=== PATIENT | female | born 1995 | race Caucasian/White ===

== ENCOUNTER → 2017-08-28 | Outpatient (CLI) | payer BC, OTHER ==
[~2017-08-28] MED LIST: ACHD5005 PO; AZIT200S47 PO; BCP PO; CETI10TA20 PO; DEXAINTSOL PO; HYDR15SO8 PO; OMEP20CA12 PO; ONDA8TAB6 PO; SULF1TAB35 PO; TETRACAINESUCKERS MT
--- NOTE | 2017-08-28 10:16 | Diagnostic Imaging Report ---
PROCEDURE: US Gallbladder. TECHNIQUE: Multiple real-time grayscale images were obtained over the right upper quadrant in various projections. INDICATION: Epigastric pain with nausea and vomiting. FINDINGS: The liver is at the upper limits of normal in size at 18 cm. No discrete liver mass is identified. The gallbladder is without stones or sludge. No wall thickening or biliary ductal dilatation is seen. The pancreas is unremarkable. The right kidney is unremarkable. There is no ascites. IMPRESSION: Unremarkable gallbladder ultrasound. Dictated by: Dictated on workstation # [id number]
== END ==
LOC: RAD 09:27
PROVIDERS: ATTEND Nurse Practitioner Family
DX: R10.11 Right upper quadrant pain (principal); R11.2 Nausea with vomiting, unspecified
CPT/HCPCS: 76705

== ENCOUNTER → 2017-08-29 | Outpatient (CLI) | payer OTHER ==
[~2017-08-29] MED LIST changes: +CATHETER FLUSH 10 ML SYR IV PRN
--- NOTE | 2017-08-29 14:55 | Diagnostic Imaging Report ---
HEPATOBILIARY SCAN DATE: August 29, 2017. INDICATION: 22-year-old female, nausea. COMPARISON: Right upper quadrant ultrasound August 28, 2017. PROCEDURE: 5.46 mCi of Tc-99m choletech was administered intravenously and serial anterior planar images over the liver and upper abdomen were obtained. FINDINGS: There is homogenous activity throughout the liver with good clearance of background activity. This indicates good hepatocellular function. Biliary tree activity is seen at 10 minutes. The gallbladder is seen at 10 minutes. There is no enterogastric reflux. The biliary tree is patent. There is no evidence of acute cholecystitis. Ensure was administered for calculation of gallbladder ejection fraction. Gallbladder ejection fraction was calculated to be 23.5%. IMPRESSION: 1. No evidence of acute cholecystitis. 2. Gallbladder ejection fraction of 23.5% which is below lower limits of normal and may be seen in the setting of biliary dyskinesia and/or chronic cholecystitis. Dictated by: Dictated on workstation # [id number]
== END ==
LOC: CARD 11:50
PROVIDERS: ATTEND Surgery
DX: R11.0 Nausea (principal)
CPT/HCPCS: 78227

== ENCOUNTER 2017-09-01 08:00 | Day surgery (SDC) | payer OTHER ==
[~2017-09-01] VITALS: Ht 167.6 cm; Wt 51.7 kg
[~2017-09-01 08:00] MED LIST changes: -ACHD5005 PO; -CATHETER FLUSH 10 ML SYR IV PRN; -CETI10TA20 PO; -OMEP20CA12 PO; -ONDA8TAB6 PO; -SULF1TAB35 PO
[2017-09-01] MEDS ORDERED: LACTATED RINGERS 1,000 ML IV ONE (08:07)
[2017-09-01] MEDS ORDERED: LACTATED RINGERS 1,000 ML IV STA (08:10)
[2017-09-01] MEDS ORDERED: HURRICAINE EXT TUBE (BENZOCAINE) XX PRN (08:15)
[2017-09-01 08:23] VITALS: BP 102/73
[2017-09-01] MEDS ORDERED: OMEP20CA12 PO ×2 (08:27)
[2017-09-01] MEDS ORDERED: CETI10TA20 PO ×2 (08:27)
[2017-09-01] MEDS ORDERED: PROPOFOL INJECTION 50 ML IV ONE (09:28)
--- NOTE | 2017-09-01 09:43 | Progress Note-Pre Operative ---
Pre-Operative Progress Note H&P Reviewed The H&P was reviewed, patient examined and no changes noted. Time Seen by Provider: 09:40 Date H&P Reviewed: Sep 01, 2017 Time H&P Reviewed: 09:42 Pre-Operative Diagnosis: Gastritis, Change in bowel habits, abdominal pain RON BETHEA DO Sep 01, 2017 09:42
[2017-09-01] MEDS ORDERED: proPOfol 200 MG/20 ML (DIPRIVAN) VIAL IV ONE (09:52)
[2017-09-01] MEDS ORDERED: HURRICAINE EXT TUBE (BENZOCAINE) ONE (10:19)
--- NOTE | 2017-09-01 10:23 | Progress Note-Post Operative ---
Post-Operative Progess Note Surgeon (s)/Clinical Staff Anesthesiologist (s) Surgeon RON BETHEA DO Clinical Staff Anesthesiologist: none Pre-Operative Diagnosis Gastritis, Change in bowel habits, abdominal pain Post-Operative Diagnosis Gastritis Esophageal Polyp Internal Hemorrhoids Procedure & Operative Findings Date of Procedure 09/01/17 Procedure Performed/Findings EGD with bx Colonoscopy Anesthesia Type IV sedation by TOW CAR DRIVER Estimated Blood Loss Estimated blood loss (mL): scant Specimens/Packing Specimens Removed Antral bx Esophageal polyp RON BETHEA DO Sep 01, 2017 10:23
[2017-09-01 10:30] VITALS: BP 129/64
--- NOTE | 2017-09-01 10:32 | Endoscopy Discharge Instruct ---
Endo Procedure/Findings Findings 1.: Gastritis 2.: Internal Hemorrhoids Discharge Instructions - Activity: You might feel a little sleepy until tomorrow. This is due to the medicine you received to relax you. Until tomorrow, you should: NOT drive a car, operate machinery or power tools. NOT drink any alcoholic beverages. NOT make any important decisions or sign importortant papers. Do not return to work until tomorrow, unless otherwise instructed. Resume previous activities tomorrow. Diet: Start by taking liquids. If you tolerate liquids, advance to solid food. Make appointment for one week. Notify Physician - If you experience excessive bleeding, unusual abdominal pain, fever, or chest pain, contact your doctor immediately. Follow-Up: - I have received and understand the above instructions and will call my doctor if I have any further questions. Patient Signature Date Nurse Signature Other (Relationship) RON BETEHA DO Sep 01, 2017 10:32
[2017-09-01 10:50] VITALS: BP 109/89
[2017-09-01 11:11] VITALS: BP 109/89
--- NOTE | 2017-09-01 12:13 | Anesthesia-General Post-Op ---
MAC Patient Condition Mental Status/LOC: Same as Preop Cardiovascular: Satisfactory Nausea/Vomiting: Absent Respiratory: Satisfactory Pain: Controlled Complications: Absent Post Op Complications Complications None Follow Up Care/Instructions Patient Instructions None needed. Anesthesiology Discharge Order Discharge Order Patient is doing well, no complaints, stable vital signs, no apparent adverse anesthesia problems. No complications reported per nursing. LESLY WHEELER CRNA Sep 01, 2017 12:13
--- OUTSIDE RECORDS SUMMARY | 2017-09-01 13:44 | XMS REPORT | Continuity of Care Document ---
Author Author [facility] Organization [facility] Address Unknown Phone Unavailable Allergies Active Description Code Type Severity Reaction Onset Reported/Identified Relationship to Patient Clinical Status Yes cefadroxil [id number] Drug Allergy Severe HIVES AND DIFFI 02/12/2006 Yes amoxicillin trihydrate [id number] Drug Allergy Unknown HIVES 08/02/2011 Yes potassium clavulanate [id number] Drug Allergy Unknown HIVES 08/02/2011 Medications There is no data. Problems Date Dx Coded Attending Type Code Diagnosis Diagnosed By 08/02/2011 Ot 789.01 ABDOMINAL PAIN, RIGHT UPPER QUADRANT 04/01/2013 MADELYN OLSEN, JUWAN Lundberg Ot 380.10 INFEC OTITIS EXTERNA NOS 03/10/2014 Ot 785.6 03/10/2014 Ot 785.6 03/28/2014 JUWAN JOSHI MD Ot 789.03 06/30/2014 Ot 785.6 06/30/2014 JUWAN JOSHI MD Ot 789.03 07/28/2014 DAMION SIMENTAL PRODUCT SALES ENGINEER Ot 599.0 11/22/2014 KASH PERKINS E PRODUCT SALES ENGINEER Ot 780.60 11/22/2014 KASH PERKINS E PRODUCT SALES ENGINEER Ot 787.03 11/22/2014 GREGORIO KASH E PRODUCT SALES ENGINEER Ot 789.03 02/01/2016 Ot 785.6 ENLARGEMENT LYMPH NODES 02/01/2016 MADELYN OLSEN, JUWAN Lundberg Ot 789.03 ABDOMINAL PAIN, RIGHT LOWER QUADRANT 02/01/2016 DAMION SIMENTAL PRODUCT SALES ENGINEER Ot 599.0 URIN TRACT INFECTION NOS 02/01/2016 PERKINS, KASH E PRODUCT SALES ENGINEER Ot 780.60 FEVER, UNSPECIFIED 02/01/2016 PERKINS KASH E PRODUCT SALES ENGINEER Ot 787.03 VOMITING ALONE 02/01/2016 GREGORIO KASH E PRODUCT SALES ENGINEER Ot 789.03 ABDOMINAL PAIN, RIGHT LOWER QUADRANT 02/09/2016 DOMINGA JOYA MD Ot J35.01 CHRONIC TONSILLITIS 02/09/2016 DOMINGA JOYA MD Ot Z01.818 ENCOUNTER FOR OTHER PREPROCEDURAL EXAMIN 02/09/2016 DOMINGA JOYA MD Ot J35.01 CHRONIC TONSILLITIS 02/09/2016 DOMINGA JOYA MD Ot Z01.818 ENCOUNTER FOR OTHER PREPROCEDURAL EXAMIN 02/15/2016 DOMINGA JOYA MD Ot J35.01 CHRONIC TONSILLITIS 02/15/2016 DOMINGA JOYA MD Ot Z01.818 ENCOUNTER FOR OTHER PREPROCEDURAL EXAMIN 02/16/2016 Ot 785.6 ENLARGEMENT LYMPH NODES 02/16/2016 MADELYN OLSEN, JUWAN J Ot 789.03 ABDOMINAL PAIN, RIGHT LOWER QUADRANT 02/16/2016 NYASIAGrantDAMION PRODUCT SALES ENGINEER Ot 599.0 URIN TRACT INFECTION NOS 02/16/2016 PERKINSKASH E PRODUCT SALES ENGINEER Ot 780.60 FEVER, UNSPECIFIED 02/16/2016 PERKINS KASH E PRODUCT SALES ENGINEER Ot 787.03 VOMITING ALONE 02/16/2016 PERKINS KASH E PRODUCT SALES ENGINEER Ot 789.03 ABDOMINAL PAIN, RIGHT LOWER QUADRANT 02/16/2016 DOMINGA JOYA MD Ot J35.01 CHRONIC TONSILLITIS 02/19/2016 DOMINGA JOYA MD Ot J35.01 CHRONIC TONSILLITIS 02/19/2016 DOMINGA JOYA MD Ot J35.01 CHRONIC TONSILLITIS 02/22/2016 DOMINGA JOYA MD Ot J35.01 CHRONIC TONSILLITIS Procedures There is no data. Results Test Result Range Urine beta human chorionic gonadotropin (hCG) measurement - 02/16/16 09:25 Urine beta human chorionic gonadotropin (hCG) measurement NEGATIVE NEGATIVE Complete blood count (CBC) with automated white blood cell (WBC) differential - 02/16/16 09:41 Blood leukocytes automated count (number/volume) 5.3 10*3/uL 4.3-11.0 Blood erythrocytes automated count (number/volume) 4.51 10*6/uL 4.35-5.85 Venous blood hemoglobin measurement (mass/volume) 14.1 g/dL 11.5-16.0 Blood hematocrit (volume fraction) 41 % 35-52 Automated erythrocyte mean corpuscular volume 91 [foz_us] 80-99 Automated erythrocyte mean corpuscular hemoglobin (mass per erythrocyte) 31 pg 25-34 Automated erythrocyte mean corpuscular hemoglobin concentration measurement ( mass/volume) 35 g/dL 32-36 Automated erythrocyte distribution width ratio 11.9 % 10.0-14.5 Automated blood platelet count (count/volume) 266 10*3/uL 130-400 Automated blood platelet mean volume measurement 10.0 [foz_us] 7.4-10.4 Automated blood neutrophils/100 leukocytes 54 % 42-75 Automated blood lymphocytes/100 leukocytes 36 % 12-44 Blood monocytes/100 leukocytes 7 % 0-12 Automated blood eosinophils/100 leukocytes 2 % 0-10 Automated blood basophils/100 leukocytes 1 % 0-10 Blood neutrophils automated count (number/volume) 2.9 10*3 1.8-7.8 Blood lymphocytes automated count (number/volume) 1.9 10*3 1.0-4.0 Blood monocytes automated count (number/volume) 0.4 10*3 0.0-1.0 Automated eosinophil count 0.1 10*3/uL 0.0-0.3 Automated blood basophil count (count/volume) 0.0 10*3/uL 0.0-0.1 Methicillin resistant Staphylococcus aureus (MRSA) screening culture - 09:50 Methicillin resistant Staphylococcus aureus (MRSA) screening culture NEG NRG HSV 1 and 2-Specific Ab, IgG - 08/29/16 12:00 HSV 1 IgG, Type Spec 27.30 index 0.00-0.90 HSV 2 IgG, Type Spec <0.91 index 0.00-0.90 Urine beta human chorionic gonadotropin (hCG) measurement - 09/01/17 08:15 Urine beta human chorionic gonadotropin (hCG) measurement NEGATIVE NEGATIVE Encounters ACCT No. Visit Date/Time Discharge Status Pt. Type Provider Facility Loc./Unit Complaint [id number] 08/28/2017 09:27:00 08/28/2017 23:59:59 CLS Outpatient RAMON WILLAMS APRN [facility] RAD RUQ PAIN [id number] 02/16/2016 09:19:00 02/16/2016 15:00:00 DIS Outpatient DOMINGA JOYA MD [facility] SDC CHRONIC TONSILLITIS [id number] 02/09/2016 05:35:00 02/09/2016 11:32:00 DIS Outpatient TOAN OLSEN, DOMINGA Lentz [facility] PREOP CHRONIC TONSILLITIS [id number] 11/08/2014 13:47:00 11/08/2014 23:59:59 CLS Outpatient PERKINSKASH PRODUCT SALES ENGINEER [facility] RAD ABDOMINAL PAIN [id number] 06/30/2014 10:40:00 06/30/2014 23:59:59 CLS Outpatient KAMILLE DAMION Avila PRODUCT SALES ENGINEER [facility] LAB UTI [id number] 03/10/2014 15:12:00 03/10/2014 23:59:59 CLS Outpatient MADELYN OLSEN, JUWAN Lundberg [facility] RAD RLQ ABD PAIN [id number] 01/03/2013 17:32:00 04/01/2013 00:01:00 DIS Outpatient JUWAN JOSHI MD [facility] 4TH RCR OTITIS EXTERNA [id number] 09/01/2017 09:20:00 PEN Preadmit RON BETHEA DO [facility] ENDO NAUSEA/VOMITING/CHANGE IN BM'S [id number] 08/29/2017 11:50:00 ACT Outpatient RON BETHEA DO [facility] CARD NAUSEA [id number] 08/02/2011 10:52:00 Document Registration [id number] 01/08/2011 15:45:00 Document Registration [id number] 11/08/2014 13:48:05 ACT Document Registration [id number] 09/01/2016 13:05:00 Document Registration [id number] 08/28/2017 09:07:51 08/28/2017 23:59:59 CLS Outpatient
--- NOTE | 2017-09-01 15:11 | OPERATIVE REPORT ---
DATE OF SERVICE: 09/01/2017 PREOPERATIVE DIAGNOSES: 1. Chronic gastritis. 2. Change in bowel habits. POSTOPERATIVE DIAGNOSES: 1. Gastritis. 2. Esophageal biopsy. 3. Internal hemorrhoids. PROCEDURES PERFORMED: 1. Esophagogastroduodenoscopy with biopsy. 2. Colonoscopy. SURGEON: Prateek Singletary DO. LEAD PRESSER: None. ANESTHESIA: IV sedation by the RESEARCH AND EVALUATION MANAGER. SPECIMEN: One biopsy from the antrum and one biopsy of an esophageal polyp. BLOOD LOSS: Scant. FLUIDS: Per Anesthesia. POSTOPERATIVE CONDITION: Stable. INDICATION FOR PROCEDURE: The patient is a 22-year-old female who states she has had chronic gastritis in the past 5 years, has been taking omeprazole the entire time. Also she had some abdominal pain, some change in bowel habits and needed a workup. FINDINGS: The patient had some gastritis, biopsy was taken. She also had what looked like esophageal polyp, did a biopsy of this. Colonoscopy showed basically some internal hemorrhoids. No other obvious pathology. PROCEDURE NOTE: After informed consent was obtained, the patient was brought to the endoscopy suite, placed in the bed in left lateral decubitus position. She was administered IV sedation by the RESEARCH AND EVALUATION MANAGER who then monitored her vitals the entire time, heart rate, blood pressure and pulse ox and the scope was inserted first started with the EGD scope down the esophagus into the stomach, little bit of gastritis in the antrum, took a picture of this, pushed in and the duodenum looked normal, backed up and did a biopsy of the antrum and then backed up a little more and retroflexed, saw possibly a very tiny hiatal hernia. Pulled the scope back up into the esophagus to look at the GE junction, looked like there was a polyp at the GE junction, took a biopsy of this and then continued up the esophagus, took another picture and then pulled out of the mouth. I then switched cameras and gloves and went to the other side and started the colonoscopy. Pushed the scope in all the way to about 140 cm, able to get to the cecum, took a picture of appendiceal orifice and then able to get into the terminal ileum, took a picture and then slowly withdrew the scope insufflating to look circumferentially at the danielle looking at the cecum, up the ascending colon to the hepatic flexure, then down the transverse colon, the splenic flexure, into the descending colon and finally down into the sigmoid and into the rectum, retroflexed in the rectal vault, saw some minimal internal hemorrhoids, took a picture of this and then removed the scope. The patient tolerated the procedure and she was recovered in the endoscopy suite. Job ID: [id number] DocumentID: [id number] Dictated Date: 09/01/2017 10:37:43 Scouring Train Operator Date: 09/01/2017 15:10:18 Dictated By: DO CHINYERE TIJERINA
[2017-09-11] MEDS ORDERED: ACHD5005 PO (09:33)
== END 2017-09-01 11:00 | disposition home or self-care (01) ==
LOC: ENDO 08:00
PROVIDERS: ATTEND Surgery
DX: K29.50 Unspecified chronic gastritis without bleeding (principal); K31.7 Polyp of stomach and duodenum; K64.8 Other hemorrhoids; R19.4 Change in bowel habit
CPT/HCPCS: 84703

== ENCOUNTER 2017-09-09 05:39 | Outpatient (CLI) | payer OTHER ==
[~2017-09-09] VITALS: Ht 167.6 cm; Wt 51.7 kg
[~2017-09-09 05:39] MED LIST changes: +CETI10TA20 PO; +OMEP20CA12 PO
[2017-09-09] MEDS ORDERED: ONDA8TAB6 PO (14:06)
[2017-09-11] MEDS ORDERED: ACHD5005 PO (09:33)
== END 2017-09-09 14:54 | disposition home or self-care (01) ==
LOC: PREOP 05:39
PROVIDERS: ATTEND Surgery
DX: Z01.818 Encounter for other preprocedural examination (principal)

== ENCOUNTER 2017-09-11 06:05 | Day surgery (SDC) | payer OTHER ==
[~2017-09-11] VITALS: Ht 167.6 cm; Wt 51.7 kg
[~2017-09-11 06:05] MED LIST changes: +ONDA8TAB6 PO
[2017-09-11] MEDS ORDERED: CLINDAMYCIN 600 MG/50 ML IVPB 50 ML IV ONE ×2 (06:15→06:44)
[2017-09-11 06:20] VITALS: BP 99/67
[2017-09-11] MEDS: LACTATED RINGERS 1,000 ML IV PRN ×2 (06:30→08:49)
[2017-09-11] MEDS ORDERED: proPOfol 200 MG/20 ML (DIPRIVAN) VIAL IV ONE (06:43)
[2017-09-11] MEDS ORDERED: ONDANSETRON 4 MG/2 ML (SDV) Z0FRAN ONE (06:43)
[2017-09-11] MEDS ORDERED: LIDOCAINE PF 2% 5 ML (XYLOCAINE) VIAL ONE (06:43)
[2017-09-11] MEDS ORDERED: MIDAZOLAM 10 MG/2 ML (VERSED) VIAL ONE (06:43)
[2017-09-11] MEDS ORDERED: SEVOFLURANE (ULTANE) 15 ML INHAL SOLN ONE ×4 (06:43→09:32)
[2017-09-11] MEDS ORDERED: DEXAMETHASONE 10 MG/ML (DECADRON) 1 ML VIAL ONE (06:43)
[2017-09-11] MEDS ORDERED: fentaNYL INJECTION 100 MCG/2 ML AMP ONE (06:43)
[2017-09-11 07:01] LABS: BASOPHILS % (AUTO) 1 % (0-10); EOSINOPHILS # (AUTO) 0.1 10^3/uL (0.0-0.3); EOSINOPHILS % (AUTO) 1 % (0-10); HEMATOCRIT 34 % (35-52); HEMOGLOBIN 11.8 G/DL (11.5-16.0); LYMPHOCYTES % (AUTO) 32 % (12-44); MEAN CORPUSCULAR HEMOGLOBIN 31 PG (25-34); MEAN CORPUSCULAR HGB CONC 35 G/DL (32-36); MEAN CORPUSCULAR VOLUME 88 FL (80-99); MEAN PLATELET VOLUME 9.5 FL (7.4-10.4); MONOCYTES # (AUTO) 0.5 X 10^3 (0.0-1.0); MONOCYTES % (AUTO) 7 % (0-12); NEUTROPHILS # (AUTO) 3.7 X 10^3 (1.8-7.8); NEUTROPHILS % (AUTO) 59 % (42-75); PLATELET COUNT 237 10^3/uL (130-400); WHITE BLOOD COUNT 6.3 10^3/uL (4.3-11.0)
[2017-09-11] MEDS ORDERED: ROCURONIUM 10 MG/ML 5 ML SYRINGE IV ONE (07:18)
[2017-09-11] MEDS ORDERED: GLYCOPYRROLATE 0.2 MG/ML (ROBINUL) 2 ML VIAL ONE (07:33)
[2017-09-11] MEDS ORDERED: NEOSTIGMINE 1 MG/ML 5 ML SYRINGE ONE (07:33)
[2017-09-11] MEDS ORDERED: LIDOCAINE/EPI 1%-1:200,000 (XYLOCAINE) 10 ML VIAL ONE (07:37)
--- NOTE | 2017-09-11 08:18 | Progress Note-Pre Operative ---
Pre-Operative Progress Note H&P Reviewed The H&P was reviewed, patient examined and no changes noted. Time Seen by Provider: 08:13 Date H&P Reviewed: Sep 11, 2017 Time H&P Reviewed: 08:16 Pre-Operative Diagnosis: Biliary Dyskinesia RON BETHEA DO Sep 11, 2017 08:18
--- NOTE | 2017-09-11 09:32 | Progress Note-Post Operative ---
Post-Operative Progess Note Surgeon (s)/Renewals Representative (s) Surgeon RON BETHEA DO Renewals Representative: Gregory Pre-Operative Diagnosis Biliary Dyskinesia Post-Operative Diagnosis Biliary Dyskinesia Abnormal Appendix Right indirect inguinal hernia Procedure & Operative Findings Date of Procedure 09/11/17 Procedure Performed/Findings Lap Kat with IOC Lap Appy Anesthesia Type GET Estimated Blood Loss Estimated blood loss (mL): scant Specimens/Packing Specimens Removed GB RON Adams DO Sep 11, 2017 09:32
[2017-09-11] MEDS ORDERED: ACHD5005 PO (09:33)
--- NOTE | 2017-09-11 09:35 | Discharge Inst-Surgical ---
Discharge Inst-Surgical Depart Medication/Instructions New, Converted or Re-Newed RX: RX Given to Pt/Family Patient Instructions Follow up Appt: Make appointment for 1 week. Instructions: No lifting greater than 10 pounds. No strenuous activity. May shower in 24 hours, no tub bath or soaking. Use incentive spirometer at home as directed. No Smoking Skin/Wound Care: May remove bandages in am. You need to leave the Dermabond on over incision it will fall off on its own. Symptoms to Report: Appetite Changes, Extremity Discoloration, Numbness/Tingling, Swelling Increased , Bleeding Excessive, Eyesight Changes, Pain Increased, Urine Color Change, Constipation(Persistent), Fever over 101 degree F, Pain/Pressure in chest, Urinating Difficulty, Cough Up/Vomit Blood, Heart Beat Irreg/Pounding, Pain/ Pressure in jaw, Vaginal Bleeding Increase, Cramps in feet or legs, Lightheadedness, Pain/Pressure in shoulder, Diarrhea(Persistent), Memory Changes Suddenly, Questions/Concerns, Weight gain consecutive days, Dizziness/ Fainting, Nausea/Vomiting, Shortness of Breath, Weight gain over 2 pounds If questions or concerns contact your physician Or seek help at emergency department. Activity Activity as Tolerated: Yes Activity Instructions: Avoid Stress to Incision Driving Instructions: No Driving/Refer to Dr. Dailey Discharge Diet: No Restrictions Diet After 24 Hours: Clear Liquid if Nauseous If Any Problems/Questions/Issu: Contact Your Physician, Go to Emergency Room Skin/Wound Care Infection Signs and Symptoms: Increased Redness, Foul Odor of Wound, Increased Drainage, Skin Itchy or Has a Rash, Increased Swelling, Temperature Above 101 F Wound Care Comment: Use heating pad for neck or shoulder pain tonight Bathing Instructions: Shower Stitches/Appling/Dermabond Dis: Dermabond Ice Pack: Ice On and Off Site (as needed for pain) RON BETHEA DO Sep 11, 2017 09:35
[2017-09-11] MEDS ORDERED: ONDANSETRON 4 MG/2 ML (SDV) Z0FRAN IVP PRN (10:00)
[2017-09-11] MEDS ORDERED: MEPERIDINE (DEMEROL) INJ 50 MG/ML IVP PRN (10:00)
[2017-09-11] MEDS ORDERED: KETOROLAC 30 MG/ML VIAL IVP ONE (10:00)
[2017-09-11] MEDS ORDERED: PROMETHAZINE INJ 25 MG/ML (PHENERGAN) AMP IVP PRN (10:00)
[2017-09-11] MEDS ORDERED: KETOROLAC 30 MG/ML VIAL ONE (10:04)
[2017-09-11] MEDS ORDERED: morphine INJ 10 MG/ML 1ML (SYR OR VIAL) ONE (10:13)
[2017-09-11] MEDS: morphine INJ 10 MG/ML 1ML (SYR OR VIAL) IVP PRN ×2 (10:15→10:20)
[2017-09-11 10:45] VITALS: BP 107/74
[2017-09-11 10:46] VITALS: BP 107/74
[2017-09-11] MEDS ORDERED: HYDROcodone/APAP 5 MG/325 MG (LORTAB) TAB PO ONE (11:00)
[2017-09-11] MEDS ORDERED: HYDROcodone/APAP 5 MG/325 MG (LORTAB) TAB ONE (11:04)
[2017-09-11 11:15] VITALS: BP 96/63
--- NOTE | 2017-09-11 11:19 | Diagnostic Imaging Report ---
INDICATION: Abdominal pain. FINDINGS: Operative cholangiogram performed in routine fashion, intraoperative fluoroscopy was used. Contrast injection was made via the cystic duct stump. The biliary tree is nondilated. There is no filling defect in the biliary tree. Contrast passes to the duodenum without obstruction. Anatomic variant of one of the right ducts passing to the left ductal system was noted. 6 seconds of fluoroscopy time was used. IMPRESSION: Intraoperative fluoroscopy used for operative cholangiogram. There is no common duct stone or biliary obstruction. 6 seconds of fluoroscopy time was used in surgery. Dictated by: Dictated on workstation # [id number]
[2017-09-11 11:45] VITALS: BP 98/62
--- NOTE | 2017-09-11 13:25 | OPERATIVE REPORT ---
DATE OF SERVICE: 09/11/2017 PREOPERATIVE DIAGNOSIS: Biliary dyskinesia. POSTOPERATIVE DIAGNOSES: 1. Biliary dyskinesia. 2. Abnormal appendix. 3. Indirect right inguinal hernia. PROCEDURES: 1. Laparoscopic cholecystectomy, intraoperative cholangiogram. 2. Laparoscopic appendectomy. SURGEON: Prateek Singletary DO. OCCUPANCY SPECIALIST: Thomas Jenkins D.O. ANESTHESIA: General endotracheal tube. SPECIMEN: 1. Gallbladder and contents. 2. Appendix. BLOOD LOSS: Scant. FLUIDS: Per anesthesia. POSTOPERATIVE CONDITION: Stable. INDICATION FOR PROCEDURE: The patient is a 22-year-old female who has biliary dyskinesia and abdominal pain, needed her gallbladder removed. FINDINGS: The patient had dilated gallbladder, possibly some little bit of edema around it and then of note, she had an abnormal appendix, it was larger than at least a cm in size and appeared to have some erythema at the tip of the appendix. She also had an indirect right inguinal hernia. PROCEDURE NOTE: After informed consent was obtained, the patient was brought to the operating room, placed on the operating table in supine position. She was sterilely prepped and draped in normal fashion. Local lidocaine was used to infiltrate the skin below the umbilicus. Made incision with #11 blade, carried down through skin into subcutaneous tissue, then deepened down to subcutaneous tissue with Bovie electrocautery down to the fascia. Fascia was incised with electrocautery and bluntly entered the abdomen, swept a finger around, placed 11 mm trocar port under direct visualization. Created pneumoperitoneum and then placed 3 more ports in normal fashion using local lidocaine, 11 blade for stab incision and the VersaStep system all done under direct visualization, one subxiphoid and 2 in the right lower quadrant trying to hide the incision in the bikini line. Upon entering found the gallbladder was dilated, able to grasp at the fundus and taken in superior direction and grasp down to Alex's pouch and pulled in the inferolateral direction, started dissecting out cystic duct and cystic artery. I was able to get around the cystic duct, placed 1 clip distally and then get around the cystic artery and placed 1 clip distally and 2 proximally on the cystic artery. Cut the cystic duct intermediate through Metzenbaum scissors. Placed a cholangiogram catheter and shot a cholangiogram. Good spillage of dye down the cystic duct and the common bile duct and down the small intestine as well as up into common hepatic and right and left hepatics, very small common bile duct and common hepatic duct. Removed the cholangiogram catheter, placed 2 clips proximally on the cystic duct and cut the cystic duct and cystic artery with Metzenbaum scissors and then removed the gallbladder from bed of liver with L-hook cautery. Once this was completely removed, looked around and noted that the appendix actually looked very thickened, at one point measured it, on the inside looked like it was at least a cm, which is abnormally large and the tip looked a little bit erythematous, so at this point we elected to also do laparoscopic appendectomy. I started coming through the mesoappendix with a Bovie electrocautery able to dissect out and find the appendiceal artery and placed 2 clips on the appendiceal artery proximally and one distally and then cut this in the Metzenbaum scissors and then continued to take down the mesoappendix until the appendix was just attached to the cecum, brought an Endoloop in through the port and then dropped across the base of the appendix and tied this down, clamped the appendix and then cut above the Endoloop to cut the appendix off and then switched to a 5 mm camera, placed a bag in the abdomen, placed the appendix in the bag and then placed the gallbladder in the bag and removed this through the infraumbilical incision and pulled this out. Placed the port back in the abdomen, did cauterized the distal tip or the remaining portion of the appendix. This looked good. Noted an indirect inguinal hernia, forgot to take a picture of this and then looked around. Copiously irrigated with normal saline. Hemostasis obtained using Bovie electrocautery. There was no bleeding from the liver, no bleeding from the appendix. Everything looked good. She had been reverse Trendelenburg for the gallbladder and then Trendelenburg for the appendix. She was then placed flat. Removed all ports under direct visualization allowed pneumoperitoneum to escape as well as suctioned it out and then closed all incisions starting at infraumbilical incision, closed the fascia with 0 Vicryl [id number] suture and copiously irrigated all incisions with normal saline. Closed the 3 small 5 mm incision with a single interrupted 4-0 undyed Monocryl subcuticular stitch. Closed the infraumbilical incision with 3 interrupted 4-0 undyed Monocryl subcuticular stitches. Area was cleaned and dried and Dermabond placed and patient then transferred to recovery room in stable condition. Sponge, instrument and needle count correct at the end of the case. Dr. Jenkins assisted in this case helping to make incisions, closed the incisions, identifying anatomy, holding the anatomy out of the way. Job ID: [id number] DocumentID: [id number] Dictated Date: 09/11/2017 11:22:43 Informatics Coordinator Date: 09/11/2017 13:24:31 Dictated By: DO CHINYERE TIJERINA
--- NOTE | 2017-09-11 13:37 | Anesthesia-General Post-Op ---
General Patient Condition Mental Status/LOC: Same as Preop Cardiovascular: Satisfactory Nausea/Vomiting: Absent Respiratory: Satisfactory Pain: Controlled Complications: Absent Post Op Complications Complications None Follow Up Care/Instructions Patient Instructions None needed. Anesthesia/Patient Condition Patient Condition Patient is doing well, no complaints, stable vital signs, no apparent adverse anesthesia problems. No complications reported per nursing. D/C home per [facility] Criteria: Yes JAQUI GARCIA CRNA Sep 11, 2017 13:37
== END 2017-09-11 12:06 | disposition home or self-care (01) ==
LOC: SDC 06:05
PROVIDERS: ATTEND Surgery
DX: K81.1 Chronic cholecystitis (principal); K38.0 Hyperplasia of appendix; K40.90 Unilateral inguinal hernia, without obstruction or gangrene, not specified as recurrent; J45.909 Unspecified asthma, uncomplicated
CPT/HCPCS: 36415; 84703; 85025; 87081; 94664

== ENCOUNTER 2017-09-13 20:35 | Emergency (ER) | payer OTHER ==
[~2017-09-13] VITALS: Ht 167.6 cm; Wt 54.4 kg
[~2017-09-13 20:35] MED LIST changes: +ACHD5005 PO
--- NOTE | 2017-09-13 21:17 | ED Integumentary General ---
General Chief Complaint: Skin/Wound Problems Stated Complaint: GALLBLADDER SURGERY,INCISION INFECTED Nursing Triage Note: pt states lap noni salvador last , unblicial redness. worsening of pain and fever Source: patient Exam Limitations: no limitations History of Present Illness Date Seen by Provider: Sep 13, 2017 Time Seen by Provider: 21:15 Initial Comments to ER coming by mother with reports of possible incisional infection. She had a laparoscopic cholecystectomy and appendectomy on the of this month. Today, she developed worsening pain, a bit of swelling around the umbilical incision and redness around this incision as well. No drainage. She did have a temperature of 100.2 at home Timing/Duration: just prior to arrival Severity: moderate Possible Cause: no cause identified Allergies and Home Medications Allergies Coded Allergies: cefadroxil (Unverified Allergy, Severe, HIVES AND DIFFICULTY BREATHING, ) amoxicillin trihydrate (Verified Allergy, Unknown, HIVES, 09/09/17) potassium clavulanate (Verified Allergy, Unknown, HIVES, 09/09/17) Home Medications Cetirizine HCl 10 Mg Tablet, 10 MG PO DAILY, (Reported) Hydrocodone Bit/Acetaminophen 1 Tab Tab, 1 TAB PO Q6H PRN Prescribed by: RON BETHEA on 09/11/17 0933 Omeprazole 20 Mg Capsule.dr, 60 MG PO DAILY, (Reported) Ondansetron HCl 8 Mg Tablet, 8 MG PO PRN, (Reported) Sulfamethoxazole/Trimethoprim 1 Each Tablet, 1 EACH PO BID Prescribed by: JAKE OTTO on 09/13/17 2130 [Bcp] , 1 TAB PO DAILY, (Reported) Patient Home Medication List Home Medication List Reviewed: Yes Constitutional: see HPI; No chills, No fever EENTM: see HPI Respiratory: no symptoms reported Cardiovascular: no symptoms reported Genitourinary: no symptoms reported Musculoskeletal: no symptoms reported Skin: see HPI Psychiatric/Neurological: No Symptoms Reported Past Vfwyqdw-Ocxgzg-Ccoxkm Hx Patient Social History Alcohol Beverage of Choice: Wine Recent Foreign Travel: No Contact w/Someone Who Travel: No Recent Infectious Disease Expo: No Recent Hopitalizations: No Immunizations Up To Date Tetanus Booster (TDap): Unknown PED Vaccines UTD: No Date of Influenza Vaccine: Nov 18, 2015 Seasonal Allergies Seasonal Allergies: Yes Past Medical History Reproductive Disorders: No Gastroesophageal Reflux Tonsilitis Physical Exam Vital Signs Vital Signs - First Documented 09/13/17 20:58 Temp 99.2 Pulse 80 Resp 18 B/P (MAP) 96/64 (75) Pulse Ox 96 O2 Delivery Room Air Capillary Refill : Less Than 3 Seconds General Appearance: WD/WN, no apparent distress HEENT: PERRL/EOMI, normal ENT inspection Neck: non-tender, full range of motion Respiratory: no respiratory distress, no accessory muscle use Extremities: normal range of motion Neurologic/Psychiatric: alert, normal mood/affect, oriented x 3 Skin: normal color, warm/dry, other (all incisions are clean dry and intact. There is about 3 cm of erythema extending from the inferior aspect of the umbilical incision. The superior aspect of the incision is without erythema.) Progress/Results/Core Measures Results/Orders Lab Results Laboratory Tests Test 09/13/17 21:10 09/13/17 21:35 Range/Units White Blood Count 7.5 4.3-11.0 10^3/uL Red Blood Count 3.72 L 4.35-5.85 10^6/uL Hemoglobin 11.6 11.5-16.0 G/DL Hematocrit 33 L 35-52 % Mean Corpuscular Volume 89 80-99 FL Mean Corpuscular Hemoglobin 31 25-34 PG Mean Corpuscular Hemoglobin Concent 35 32-36 G/DL Red Cell Distribution Width 11.9 10.0-14.5 % Platelet Count 219 130-400 10^3/uL Mean Platelet Volume 9.5 7.4-10.4 FL Neutrophils (%) (Auto) 71 42-75 % Lymphocytes (%) (Auto) 18 12-44 % Monocytes (%) (Auto) 11 0-12 % Eosinophils (%) (Auto) 1 0-10 % Basophils (%) (Auto) 0 0-10 % Neutrophils # (Auto) 5.3 1.8-7.8 X 10^3 Lymphocytes # (Auto) 1.3 1.0-4.0 X 10^3 Monocytes # (Auto) 0.8 0.0-1.0 X 10^3 Eosinophils # (Auto) 0.0 0.0-0.3 10^3/uL Basophils # (Auto) 0.0 0.0-0.1 10^3/uL Sodium Level 135 135-145 MMOL/L Potassium Level 3.6 3.6-5.0 MMOL/L Chloride Level 100 98-107 MMOL/L Carbon Dioxide Level 26 21-32 MMOL/L Anion Gap 9 5-14 MMOL/L Blood Urea Nitrogen 3 L 7-18 MG/DL Creatinine 0.70 0.60-1.30 MG/DL Estimat Glomerular Filtration Rate > 60 BUN/Creatinine Ratio 4 Glucose Level 99 70-105 MG/DL Calcium Level 9.3 8.5-10.1 MG/DL Total Bilirubin 1.2 H 0.1-1.0 MG/DL Aspartate Amino Transf (AST/SGOT) 140 H 5-34 U/L Alanine Aminotransferase (ALT/SGPT) 185 H 0-55 U/L Alkaline Phosphatase 107 40-136 U/L Total Protein 6.5 6.4-8.2 GM/DL Albumin 3.8 3.2-4.5 GM/DL Serum Test, Qualitative NEGATIVE NEGATIVE Urine Color YELLOW Urine Clarity SLIGHTLY CLOUDY Urine pH 8 5-9 Urine Specific Sunset 1.010 L 1.016-1.022 Urine Protein NEGATIVE NEGATIVE Urine Glucose (UA) NEGATIVE NEGATIVE Urine Ketones NEGATIVE NEGATIVE Urine Nitrite NEGATIVE NEGATIVE Urine Bilirubin NEGATIVE NEGATIVE Urine Urobilinogen NORMAL NORMAL MG/DL Urine Leukocyte Esterase NEGATIVE NEGATIVE Urine RBC (Auto) NEGATIVE NEGATIVE Urine RBC NONE /HPF Urine WBC RARE /HPF Urine Squamous Epithelial Cells 25-50 H /HPF Urine Crystals NONE /LPF Urine Bacteria FEW H /HPF Urine Casts NONE /LPF Urine Mucus NEGATIVE /LPF Urine Culture Indicated NO My Orders Orders - JAKE OTTO APRN Cbc With Automated Diff (09/13/17 21:00) Comprehensive Metabolic Panel (09/13/17 21:00) Ua Culture If Indicated (09/13/17 21:00) Iv [place]-Insert (Order) (09/13/17 21:00) Hcg,Qualitative Serum (09/13/17 21:00) Sulfamethoxazole/Trimet Ds Tab (Bactrim (09/13/17 22:00) Vital Signs/I&O 09/13/17 20:58 Temp 99.2 Pulse 80 Resp 18 B/P (MAP) 96/64 (75) Pulse Ox 96 O2 Delivery Room Air Blood Pressure Mean: 75 Departure Impression Primary Impression: Incisional infection Disposition: 01 HOME, SELF-CARE Condition: Stable Departure-Patient Inst. Decision time for Depature: 21:29 Referrals: LESLEY PRUETT DO (PCP/Family) Primary Care Physician Patient Instructions: Wound Care (DC) Add. Discharge Instructions: 1. Take the antibiotics as directed. Return to ER for any concerns 2. Follow-up with Dr. Bethea next week.All discharge instructions reviewed with patient and/or family. Voiced understanding. Scripts Sulfamethoxazole/Trimethoprim (Bactrim Ds Tablet) 1 Each Tablet 1 EACH PO BID, #14 TAB Prov: JAKE OTTO [employer] 09/13/17 Copy Copies To 1: RON BETHEA PETER J APRN Sep 13, 2017 21:17
[2017-09-13 21:19] LABS: BASOPHILS % (AUTO) 0 % (0-10); EOSINOPHILS % (AUTO) 1 % (0-10); HEMATOCRIT 33 % (35-52); HEMOGLOBIN 11.6 G/DL (11.5-16.0); LYMPHOCYTES # (AUTO) 1.3 X 10^3 (1.0-4.0); LYMPHOCYTES % (AUTO) 18 % (12-44); MEAN CORPUSCULAR HEMOGLOBIN 31 PG (25-34); MEAN CORPUSCULAR HGB CONC 35 G/DL (32-36); MEAN CORPUSCULAR VOLUME 89 FL (80-99); MEAN PLATELET VOLUME 9.5 FL (7.4-10.4); MONOCYTES # (AUTO) 0.8 X 10^3 (0.0-1.0); MONOCYTES % (AUTO) 11 % (0-12); NEUTROPHILS # (AUTO) 5.3 X 10^3 (1.8-7.8); NEUTROPHILS % (AUTO) 71 % (42-75); PLATELET COUNT 219 10^3/uL (130-400); RED BLOOD COUNT 3.72 10^6/uL (4.35-5.85); RED CELL DISTRIBUTION WIDTH 11.9 % (10.0-14.5); WHITE BLOOD COUNT 7.5 10^3/uL (4.3-11.0)
[2017-09-13] MEDS ORDERED: SULF1TAB35 PO (21:30)
[2017-09-13 21:35] LABS: ALANINE AMINOTRANSFERASE 185 U/L (0-55); ALBUMIN 3.8 GM/DL (3.2-4.5); ALKALINE PHOSPHATASE 107 U/L (40-136); BILIRUBIN,TOTAL 1.2 MG/DL (0.1-1.0); BUN/CREATININE RATIO 4; CALCIUM 9.3 MG/DL (8.5-10.1); CARBON DIOXIDE 26 MMOL/L (21-32); CHLORIDE 100 MMOL/L (98-107); GFR ESTIMATED > 60; GLUCOSE 99 MG/DL (70-105); POTASSIUM 3.6 MMOL/L (3.6-5.0); SODIUM 135 MMOL/L (135-145); TOTAL PROTEIN 6.5 GM/DL (6.4-8.2)
[2017-09-13 21:40] LABS: BILIRUBIN,URINE NEGATIVE (NEGATIVE); CLARITY,URINE SLIGHTLY CLOUDY; COLOR,URINE YELLOW; GLUCOSE, URINE (UA) NEGATIVE (NEGATIVE); KETONES,URINE NEGATIVE (NEGATIVE); LEUKOCYTE ESTERASE ,URINE NEGATIVE (NEGATIVE); NITRITE,URINE NEGATIVE (NEGATIVE); PH,URINE 8 (5-9); PROTEIN,URINE NEGATIVE (NEGATIVE); UROBILINOGEN,URINE NORMAL (NORMAL)
[2017-09-13 21:49] LABS: BACTERIA,URINE FEW /HPF; SQUAMOUS EPITHELIAL CELL,UR 25-50 /HPF; WBC,URINE RARE /HPF
[2017-09-13] MEDS ORDERED: TRIM/SULFAMETH 160/800 (SEPTRA DS) TAB PO ONE (22:00)
[2017-09-13 22:11] VITALS: BP 96/64
== END 2017-09-13 22:13 | disposition home or self-care (01) ==
LOC: EDUNIT# 20:35 → ER 20:38
DX: K91.89 Other postprocedural complications and disorders of digestive system (principal); Z90.49 Acquired absence of other specified parts of digestive tract; Z88.0 Allergy status to penicillin; Z88.8 Allergy status to other drugs, medicaments and biological substances; Z90.89 Acquired absence of other organs
CPT/HCPCS: 36415; 80053; 81000; 84703; 85025